=== PATIENT | female | born 1990 | race Caucasian/White ===

== ENCOUNTER 2016-12-05 07:57 | Inpatient (IN) | payer BC, OTHER ==
[~2016-12-05] VITALS: Ht 162.6 cm; Wt 80.3 kg
[2016-12-05] VITALS (61 sets, daily range): BP systolic 96–137; BP diastolic 54–85
[2016-12-05] MEDS ORDERED: D5 LR IV SOLUTION 1,000 ML IV ONE (08:12)
[2016-12-05] MEDS ORDERED: AMPICILLIN INJECTION 2,000 MG in NS (IVPB) 50 ML IV SCH (08:12)
[2016-12-05] MEDS: D5 LR IV SOLUTION 1,000 ML IV SCH ×2 (08:48→15:47)
[2016-12-05 09:09] LABS: BASOPHILS % (AUTO) 0 % (0-10); EOSINOPHILS # (AUTO) 0.1 10^3/uL (0.0-0.3); EOSINOPHILS % (AUTO) 1 % (0-10); LYMPHOCYTES % (AUTO) 17 % (12-44); MEAN CORPUSCULAR HEMOGLOBIN 32 PG (25-34); MEAN CORPUSCULAR HGB CONC 34 G/DL (32-36); MEAN CORPUSCULAR VOLUME 94 FL (80-99); MEAN PLATELET VOLUME 10.3 FL (7.4-10.4); MONOCYTES # (AUTO) 1.1 X 10^3 (0.0-1.0); MONOCYTES % (AUTO) 10 % (0-12); NEUTROPHILS # (AUTO) 8.3 X 10^3 (1.8-7.8); NEUTROPHILS % (AUTO) 72 % (42-75); PLATELET COUNT 199 10^3/uL (130-400); RED BLOOD COUNT 3.87 10^6/uL (4.35-5.85); RED CELL DISTRIBUTION WIDTH 12.7 % (10.0-14.5); WHITE BLOOD COUNT 11.5 10^3/uL (4.3-11.0)
[2016-12-05] MEDS ORDERED: OXYTOCIN/NORMAL SALINE 500 ML IV SCH ×2 (09:47→18:32)
[2016-12-05] MEDS ORDERED: OXYTOCIN/NORMAL SALINE 500 ML IV ONE (10:00)
[2016-12-05] MEDS: AMPICILLIN INJECTION 1,000 MG in NS (IVPB) 50 ML IV SCH ×2 (12:39→16:50)
[2016-12-05] MEDS ORDERED: SUFENTA 0.6MCG/ML BUPIVA 0.125 100 ML ONE (13:27)
[2016-12-05] MEDS ORDERED: BUPIVACAINE 0.25% 30 ML (SENSORCAINE) VIAL ONE (13:53)
[2016-12-05] MEDS ORDERED: LIDOCAINE PF 2% 10 ML (XYLOCAINE) AMP ONE (13:53)
[2016-12-05] MEDS ORDERED: fentaNYL INJECTION 100 MCG/2 ML AMP ONE (13:53)
[2016-12-05] MEDS ORDERED: CATHETER FLUSH 10 ML SYR IV SCH (14:00)
[2016-12-05] MEDS ORDERED: EPIDURAL (SUFENTA 0.6MCG/ML BUPIVA 0.125%) 100 ML BAG EPI PRN (14:30)
[2016-12-05] MEDS ORDERED: NALOXONE 0.4 MG/ML 1 ML (NARCAN) VIAL IV PRN (14:30)
[2016-12-05] MEDS ORDERED: diphenhydrAMINE 50 MG/ML INJ (BENADRYL) IV PRN (14:30)
[2016-12-05] MEDS ORDERED: ONDANSETRON 4 MG/2 ML (SDV) Z0FRAN IV PRN (14:30)
[2016-12-05] MEDS ORDERED: LACTATED RINGERS 1,000 ML IV SCH (14:30)
--- NOTE | 2016-12-05 16:09 | History & Physical ---
History and Physical this patient is a 25-year-old G1 white female with an EDC of 429 17 admitted on 2116 at 38 weeks and 6 days secondary to oligohydramnios. Her is further complicated by having had an abnormal tetra test with a weighted risk for neural tube defect. Evaluation has not confirmed that the fetus appears to be affected by neural tube defect. She presented with complaint of contractions. She denied ruptured membranes or bleeding. Had no other problems with his . GBS S culture after 35 weeks gestation was positive. Allergies are none Medications are vitamins past medical history, past surgical history, obstetric history, and history, and social histories are per the antepartum record H ENT exam is normal Neck is supple no lymphadenopathy no thyromegaly Abdomen is gravid soft nontender nondistended Extreme show clubbing cyanosis or there is no Homans sign. Pelvic exam currently showed the cervix between 45 cm dilated 89 percent effaced and presenting part is at the 0 to -1 station vertex with intact membranes. Amniotomy performed with release of small amount of clear fluid. Laboratory Tests 12/05/16 08:30 Hemoglobin and platelet count are normal Monitor shows a normal heart rate pattern with contractions every 2-4 minutes. Pitocin is currently at 20 mU/m Cervical exam on last clinic appointment was 2 cm dilated 80 percent effaced -1 station soft slightly anterior to mid plane. This equates to a Reveles score of 7 or 8 Assessment and plan 38-6/7 weeks' gestation with oligohydramnios and abnormal tetra test with GBS positive culture. Patient has been started on ampicillin this morning. She will continue on the ampicillin until she delivers. We anticipate a vaginal delivery. term with oligohydramnios abnormal tetra test and GBS positive culture Allergies and Home Medications Allergies Coded Allergies: No Known Drug Allergies (Unverified , 12/05/16) Clinical Quality Measures DVT/VTE Risk/Contraindication: Risk Factor Score Per Nursin RFS Level Per Nursing on Admit: 1=Low/No VTE PPX KHURRAM BRADFORD MD Dec 05, 2016 4:09 pm
[2016-12-05] MEDS ORDERED: LIDOCAINE/EPI 1%-1:200,000 (XYLOCAINE) 30 ML VIAL ONE (18:18)
[2016-12-05] MEDS ORDERED: oxyCODONE/APAP 10/325MG (PERCOCET 10) TABLET PO PRN (18:45)
[2016-12-05] MEDS ORDERED: BENZOCAINE/MENTHOL (DERMOPLAST) 56 ML CAN TP PRN (18:45)
[2016-12-05] MEDS ORDERED: TETANUS,DIPTH,PERTUSS P/F (BOOSTRIX) 0.5 ML VIAL IM ONE (18:45)
[2016-12-05] MEDS ORDERED: LIDOCAINE/EPI 1%-1:200,000 (XYLOCAINE) 30 ML VIAL INJ ONE (18:45)
[2016-12-05] MEDS ORDERED: MEASLES,MUMPS,RUBELLA 1 EA INJ SC ONE (18:45)
[2016-12-05] MEDS: KETOROLAC 30 MG/ML VIAL IV SCH (19:58)
[2016-12-05] MEDS ORDERED: BIOT10003 PO (20:06)
[2016-12-05] MEDS ORDERED: PREN1TAB19 PO (20:06)
[2016-12-05] MEDS ORDERED: WITCH HAZEL(TUCKS) 40 EA JAR ONE (22:41)
[2016-12-05] MEDS ORDERED: DIBUCAINE (NUPERCAINAL) 1% OINT 30 GM ONE (22:41)
[2016-12-05] MEDS ORDERED: DIBUCAINE (NUPERCAINAL) 1% OINT 30 GM TOP PRN (23:00)
[2016-12-05] MEDS ORDERED: WITCH HAZEL(TUCKS) 40 EA JAR TOP PRN (23:00)
[2016-12-06] VITALS: BP 110/64
--- NOTE | 2016-12-06 00:20 | OPERATIVE REPORT ---
DATE OF SERVICE: 12/05/2016 DELIVERY NOTE The patient delivered by term spontaneous vaginal delivery a viable male with Apgars of 9 and 9 at 1 and 5 minutes. Expected weight was 7 pounds 7 ounces. time was 1903. The infant was a boy. The infant was bulb suctioned on delivery of the head and again on completion of delivery. An episiotomy was performed as the head was and the bottom was beginning to split and lacerate in multiple places secondary to fairly significant labial and lower vaginal edema. The episiotomy was performed. The baby delivered with the next push. The infant was bulb suctioned on delivery of the head. The delivery was complete. The baby was bulb suctioned again, cleaned, warmed and stimulated, and the umbilical cord was eventually doubly-clamped and cut. Father cut the cord. The baby was passed to mom's abdomen. Cord bloods were obtained for an umbilical artery blood gas and for routine cord bloods. The placenta delivered with some manual assistance secondary to becoming trapped in the cervix in a Kevin delivery. The placenta was intact. It did have a marginal insertion of the umbilical cord with velamentous insertion as well. The placenta was sent to pathology for permanent section secondary to the patient's oligohydramnios and to the appearance of the placenta at the time of delivery. The cervix, vagina, rectum and perineum were examined and found intact, except for the midline episiotomy with a right hymenal ring avulsion from approximately 6 to 9 o'clock position and several small lacerations from the 3 to 6 o'clock position parallel to the route of the vagina. The episiotomy and the right hymenal ring avulsion were repaired with a single suture of 3-0 Vicryl in the usual manner of repairing of the episiotomy, but with additional steps to reapproximate the hymen. The closure was anatomically correct with good cosmetic effect and good hemostasis. The rectum was examined and found intact. Sponge and needle counts were correct on completion of the delivery and the repair. Estimated blood loss was around 300 mL. The patient tolerated the delivery and repair well and recovered in the LDR. The baby remained with the mom. Job ID: [id number] DocumentID: [id number] Dictated Date: 12/05/2016 19:30:15 Network Consultant Date: 12/06/2016 00:19:48 Dictated By: KHURRAM BRADFORD MD
[2016-12-06] MEDS: KETOROLAC 30 MG/ML VIAL IV SCH ×3 (01:21→06:50)
[2016-12-06] MEDS: DOCUSATE SODIUM 100 MG (COLACE) CAP PO SCH ×3 (01:51→23:58)
[2016-12-06 04:49] VITALS: BP 109/73
--- NOTE | 2016-12-06 06:25 | Progress Note-Standard ---
Standard Progress Note Progress Notes/Assess & Plan Progress/Assessment & Plan history patient without complaint. She is ambulating, voiding, tolerating by mouth well, has good pain control. Vital Signs Date Time Temp Pulse Resp B/P (MAP) Pulse Ox O2 Delivery O2 Flow Rate FiO2 12/06/16 04:49 97.4 66 18 109/73 98 Room Air 12/06/16 00:00 97.8 78 18 110/64 97 Room Air 12/05/16 21:35 97.7 89 17 114/70 97 Room Air 12/05/16 21:17 96 18 129/60 Room Air 12/05/16 21:01 82 18 113/65 Room Air 12/05/16 20:46 98.7 71 18 112/64 Room Air 12/05/16 20:31 87 18 108/62 Room Air 12/05/16 20:17 99.0 103 18 110/69 Room Air 12/05/16 20:02 94 18 96/68 Room Air 12/05/16 19:47 99.9 108 18 106/68 Room Air 12/05/16 19:32 92 18 101/66 Room Air 12/05/16 19:18 106 18 103/61 Room Air 12/05/16 18:55 Non Rebreather 10.00 12/05/16 18:32 86 18 137/77 Room Air 12/05/16 18:17 78 18 132/77 Room Air 12/05/16 18:12 67 18 113/69 96 Room Air 12/05/16 18:05 97.6 68 18 107/69 97 Room Air 12/05/16 17:58 68 18 111/74 98 Room Air 12/05/16 17:50 65 18 119/76 97 Room Air 12/05/16 17:45 62 18 114/71 98 Room Air 12/05/16 17:30 69 18 108/72 97 Room Air 12/05/16 17:15 79 18 109/72 98 Room Air 12/05/16 17:00 83 18 110/63 97 Room Air 12/05/16 16:45 69 18 109/64 97 Room Air 12/05/16 16:30 98.3 70 18 108/65 96 Room Air 12/05/16 16:15 74 18 107/57 97 Room Air 12/05/16 16:00 75 18 117/54 98 Room Air 12/05/16 15:45 69 18 117/65 97 Room Air 12/05/16 15:30 75 18 112/64 97 Room Air 12/05/16 15:15 71 18 115/69 98 Room Air 12/05/16 15:00 69 18 109/63 98 Room Air 12/05/16 14:56 66 18 106/71 98 Room Air 12/05/16 14:53 60 18 110/70 97 Room Air 12/05/16 14:50 98.0 72 18 109/68 97 Room Air 12/05/16 14:47 78 18 116/73 97 Room Air 12/05/16 14:44 66 18 111/65 97 Room Air 12/05/16 14:41 71 18 110/63 97 Room Air 12/05/16 14:38 64 18 113/66 97 Room Air 12/05/16 14:35 69 18 114/73 97 Room Air 12/05/16 14:32 73 18 111/61 96 Room Air 12/05/16 14:29 75 18 110/61 96 Room Air 12/05/16 14:26 95 120/78 97 Room Air 12/05/16 14:23 95 112/74 98 Room Air 12/05/16 14:20 88 122/79 98 Room Air 12/05/16 14:17 86 18 124/82 99 Room Air 12/05/16 14:14 88 18 124/73 99 Room Air 12/05/16 14:00 70 18 125/81 Room Air 12/05/16 13:48 73 18 124/80 Room Air 12/05/16 13:30 98.3 68 18 123/79 Room Air 12/05/16 13:15 76 18 124/85 Room Air 12/05/16 13:00 69 18 110/73 Room Air 12/05/16 12:49 67 18 111/76 Room Air 12/05/16 12:30 71 18 117/76 Room Air 12/05/16 12:15 98.8 75 18 112/70 Room Air 12/05/16 12:00 74 18 109/71 Room Air 12/05/16 11:45 72 18 115/79 Room Air 12/05/16 11:30 72 18 111/73 Room Air 12/05/16 11:00 75 18 110/68 Room Air 12/05/16 10:30 78 18 108/58 Room Air 12/05/16 10:00 98.3 71 18 110/65 Room Air 12/05/16 09:30 83 18 108/67 Room Air 12/05/16 09:00 87 18 99/56 Room Air 12/05/16 08:30 86 18 111/72 Room Air 12/05/16 07:59 98.1 79 18 119/74 96 Room Air I & O 12/06/16 07:00 Intake Total 4350 ml Output Total 700 ml Balance 3650 ml vital signs are stable. Patient afebrile. Fundus is firm below the umbilicus and nontender. Extremities show no clubbing cyanosis. There is no Homans sign. There is some pretibial pitting edema that is normal. Assessment and plan day number 1 doing well. Plan is for routine convalescence care today with discharge home tomorrow KHURRAM BRADFORD MD Dec 06, 2016 6:25 am
[2016-12-06 08:40] VITALS: BP 119/71
--- NOTE | 2016-12-06 09:46 | Anesthesia-Regional Post-Op ---
Regional Patient Condition Mental Status: Alert, Oriented x3 Circulation: Same as Pre-Op Headache: Absent Sensation: Full Recovery Motor Block: Absent Post Op Complications Complications None Follow Up Care/Instructions Patient Instructions None needed. Anesthesia/Patient Condition Patient is doing well, no complaints, stable vital signs, no apparent adverse anesthesia problems. No complications reported per nursing. TOYIN SANTORO CRNA Dec 06, 2016 09:46
[2016-12-06 11:44] VITALS: BP 112/65
[2016-12-06] MEDS: IBUPROFEN 800 MG (MOTRIN) TAB PO SCH ×2 (16:32→23:53)
[2016-12-06 16:45] VITALS: BP 114/66
[2016-12-06 23:00] VITALS: BP 114/64
[2016-12-07 05:34] VITALS: BP 110/70
[2016-12-07] MEDS: IBUPROFEN 800 MG (MOTRIN) TAB PO SCH ×2 (05:34→11:58)
--- NOTE | 2016-12-07 07:34 | Progress Note-Standard ---
Standard Progress Note Progress Notes/Assess & Plan Progress/Assessment & Plan history patient without complaint. She is ambulating, voiding, tolerating by mouth well, has good pain control. Vital Signs Date Time Temp Pulse Resp B/P (MAP) Pulse Ox O2 Delivery O2 Flow Rate FiO2 12/06/16 04:49 97.4 66 18 109/73 98 Room Air 12/06/16 00:00 97.8 78 18 110/64 97 Room Air 12/05/16 21:35 97.7 89 17 114/70 97 Room Air 12/05/16 21:17 96 18 129/60 Room Air 12/05/16 21:01 82 18 113/65 Room Air 12/05/16 20:46 98.7 71 18 112/64 Room Air 12/05/16 20:31 87 18 108/62 Room Air 12/05/16 20:17 99.0 103 18 110/69 Room Air 12/05/16 20:02 94 18 96/68 Room Air 12/05/16 19:47 99.9 108 18 106/68 Room Air 12/05/16 19:32 92 18 101/66 Room Air 12/05/16 19:18 106 18 103/61 Room Air 12/05/16 18:55 Non Rebreather 10.00 12/05/16 18:32 86 18 137/77 Room Air 12/05/16 18:17 78 18 132/77 Room Air 12/05/16 18:12 67 18 113/69 96 Room Air 12/05/16 18:05 97.6 68 18 107/69 97 Room Air 12/05/16 17:58 68 18 111/74 98 Room Air 12/05/16 17:50 65 18 119/76 97 Room Air 12/05/16 17:45 62 18 114/71 98 Room Air 12/05/16 17:30 69 18 108/72 97 Room Air 12/05/16 17:15 79 18 109/72 98 Room Air 12/05/16 17:00 83 18 110/63 97 Room Air 12/05/16 16:45 69 18 109/64 97 Room Air 12/05/16 16:30 98.3 70 18 108/65 96 Room Air 12/05/16 16:15 74 18 107/57 97 Room Air 12/05/16 16:00 75 18 117/54 98 Room Air 12/05/16 15:45 69 18 117/65 97 Room Air 12/05/16 15:30 75 18 112/64 97 Room Air 12/05/16 15:15 71 18 115/69 98 Room Air 12/05/16 15:00 69 18 109/63 98 Room Air 12/05/16 14:56 66 18 106/71 98 Room Air 12/05/16 14:53 60 18 110/70 97 Room Air 12/05/16 14:50 98.0 72 18 109/68 97 Room Air 12/05/16 14:47 78 18 116/73 97 Room Air 12/05/16 14:44 66 18 111/65 97 Room Air 12/05/16 14:41 71 18 110/63 97 Room Air 12/05/16 14:38 64 18 113/66 97 Room Air 12/05/16 14:35 69 18 114/73 97 Room Air 12/05/16 14:32 73 18 111/61 96 Room Air 12/05/16 14:29 75 18 110/61 96 Room Air 12/05/16 14:26 95 120/78 97 Room Air 12/05/16 14:23 95 112/74 98 Room Air 12/05/16 14:20 88 122/79 98 Room Air 12/05/16 14:17 86 18 124/82 99 Room Air 12/05/16 14:14 88 18 124/73 99 Room Air 12/05/16 14:00 70 18 125/81 Room Air 12/05/16 13:48 73 18 124/80 Room Air 12/05/16 13:30 98.3 68 18 123/79 Room Air 12/05/16 13:15 76 18 124/85 Room Air 12/05/16 13:00 69 18 110/73 Room Air 12/05/16 12:49 67 18 111/76 Room Air 12/05/16 12:30 71 18 117/76 Room Air 12/05/16 12:15 98.8 75 18 112/70 Room Air 12/05/16 12:00 74 18 109/71 Room Air 12/05/16 11:45 72 18 115/79 Room Air 12/05/16 11:30 72 18 111/73 Room Air 12/05/16 11:00 75 18 110/68 Room Air 12/05/16 10:30 78 18 108/58 Room Air 12/05/16 10:00 98.3 71 18 110/65 Room Air 12/05/16 09:30 83 18 108/67 Room Air 12/05/16 09:00 87 18 99/56 Room Air 12/05/16 08:30 86 18 111/72 Room Air 12/05/16 07:59 98.1 79 18 119/74 96 Room Air I & O 12/06/16 07:00 Intake Total 4350 ml Output Total 700 ml Balance 3650 ml vital signs are stable. Patient afebrile. Fundus is firm below the umbilicus and nontender. Extremities show no clubbing cyanosis. There is no Homans sign. There is some pretibial pitting edema that is normal. Assessment and plan day number 1 doing well. Plan is for routine convalescence care today with discharge home tomorrow December 07, 2016 Patient is without complaint. She is ambulating, voiding, tolerating fairly well, has good pain control, and is requesting discharge home. Vital Signs Date Time Temp Pulse Resp B/P (MAP) Pulse Ox O2 Delivery O2 Flow Rate FiO2 12/07/16 05:34 97.9 70 18 110/70 98 Room Air 12/06/16 23:00 98.1 78 18 114/64 98 Room Air 12/06/16 16:45 98.8 84 18 114/66 99 Room Air 12/06/16 11:44 88 18 112/65 97 Room Air 12/06/16 08:40 97.3 84 18 119/71 97 Room Air vital signs are stable. Patient is afebrile. Fundus is firm below the umbilicus and nontender. Extremities show no clubbing cyanosis. There is no Homans sign. Assessment and plan day number 2 status post term spontaneous vaginal delivery at 38-6/7 weeks' gestation. Patient is doing well and will be discharged home with follow-up in clinic Final Diagnosis term spontaneous vaginal delivery at 38-6/7 weeks' gestation KHURRAM BRADFORD MD Dec 07, 2016 7:34 am
[2016-12-07] MEDS ORDERED: DOCU100C37 PO (07:35)
[2016-12-07] MEDS ORDERED: OXYC-465 PO (07:35)
[2016-12-07] MEDS ORDERED: IBUP-1780 PO (07:35)
--- NOTE | 2016-12-07 07:37 | Discharge Instructions ---
Discharge Instructions Discharge Medications New, Converted or Re-Newed RX: RX on Chart Patient Instructions Patient Instructions: as directed [facility] to [facility]: as directed Activity & Diet Discharge Diet: No Restrictions Activity as Tolerated: No Orders-Post D/C & Referrals Follow Up Appt: Call to make follow up appt. for patient in 4 weeks. Activity Per routine post vaginal delivery instructions. Diet as tolerated Patient may shower or tub bathe as desired. KHURRAM BRADFORD MD Dec 07, 2016 7:37 am
[2016-12-07 09:00] VITALS: BP 130/75
[2016-12-07] MEDS: DOCUSATE SODIUM 100 MG (COLACE) CAP PO SCH (09:56)
== END 2016-12-07 13:05 | disposition home or self-care (01) | DRG 767 ==
LOC: LDRP 07:57
PROVIDERS: ADMIT Obstetrics & Gynecology; ATTEND Obstetrics & Gynecology
PROC: 10E0XZZ Delivery of Products of Conception, External Approach (ICD-10-PCS; principal; 2016-12-05)
PROC: 0W8NXZZ Division of Female Perineum, External Approach (ICD-10-PCS; 2016-12-05)
PROC: 10D17ZZ Extraction of Products of Conception, Retained, Via Natural or Artificial Opening (ICD-10-PCS; 2016-12-05)
PROC: 0HQ9XZZ Repair Perineum Skin, External Approach (ICD-10-PCS; 2016-12-05)
DX: O41.03X0 Oligohydramnios, third trimester, not applicable or unspecified (principal); O99.824 Streptococcus B carrier state complicating childbirth; O73.0 Retained placenta without hemorrhage; O70.0 First degree perineal laceration during delivery; Z37.0 Single live birth; Z3A.38 38 weeks gestation of pregnancy; Z23 Encounter for immunization
CPT/HCPCS: 36415; 85025; 86850; 86900; 86901; 88307; 90715

== ENCOUNTER 2018-07-23 05:42 | Outpatient (CLI) | payer BC ==
[~2018-07-23] VITALS: Ht 162.6 cm; Wt 63.5 kg
[~2018-07-23 05:42] MED LIST: BIOT10005 PO; DOCU100C37 PO; IBUP-1780 PO; OXYC-465 PO; PREN1TAB19 PO
== END 2018-07-23 10:15 | disposition home or self-care (01) ==
LOC: PREOP 05:42
PROVIDERS: ATTEND Obstetrics & Gynecology
DX: Z01.818 Encounter for other preprocedural examination (principal)

== ENCOUNTER 2018-07-26 11:49 | Day surgery (SDC) | payer BC ==
[~2018-07-26] VITALS: Ht 162.6 cm; Wt 63.5 kg
--- OUTSIDE RECORDS SUMMARY | 2018-07-26 11:53 | XMS REPORT | CCD ---
Author Author Jaida Godfrey MD, [facility] Address [facility] [place] [address] Phone Care Team Providers Care Medical Assistant Prn Name Role Phone PP Unavailable CCM Unavailable Summary Purpose Interface Exchange Insurance Providers Payer name Policy type / Coverage type Covered constitution party ID Effective Begin Date Effective End Date [id number] Unknown Unknown Family history Sister Diagnosis Age At Onset Ovarian cancer Unknown Grandfather Diagnosis Age At Onset Diabetes Unknown Father Diagnosis Age At Onset No Known Diseases N/A Mother Diagnosis Age At Onset Hypertension Unknown Social History Social History Element Codes Description Effective Dates Number of children Unknown 1 07/14/2017 Marital status Unknown 03/31/[address]: 879931760 Never smoker 09/28/[address]: 437738 Currently drinks alcohol 09/28/2014 Allergies, Adverse Reactions, Alerts Substance Reaction Codes Entered Date Inactivated Date Status * NO KNOWN FOOD ALLERGIES Unknown 09/28/2014 No Inactive Date Active Seasonal Unknown 09/28/2014 No Inactive Date Active * NO KNOWN DRUG ALLERGIES Unknown 09/28/2014 No Inactive Date Active Past Medical History Illness Codes Condition Status Onset Date Resolved Date Encounter for general adult medical examination without abnormal findings ICD-9: V70.0 ICD-10: Z00.00 Active 07/23/2016 Unknown 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 03/30/2016 Unknown Tinea unguium ICD-9: 110.1 ICD-10: B35.1 Active 03/30/2016 Unknown Unspecified abnormal finding in specimens from other organs , systems and tissues ICD-9: 792.9 ICD-10: R89.9 Active 10/28/2015 Unknown Well adult ICD-9: V70.0 Active 09/28/2014 Unknown Problems Condition Codes Effective Dates Condition Status Encounter for general adult medical examination without abnormal findings ICD-9: V70.0 ICD-10: Z00.00 07/23/2016 Active 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 03/30/2016 Active Tinea unguium ICD-9: 110.1 ICD-10: B35.1 03/30/2016 Active Unspecified abnormal finding in specimens from other organs , systems and tissues ICD-9: 792.9 ICD-10: R89.9 10/28/2015 Active Well adult ICD-9: V70.0 09/28/2014 Active Medications Medication Codes Instructions Start Date Stop Date Status Fill Instructions DHA oral RxNorm: 174286 oral No Start Date Active fenugreek seed extract oral RxNorm: 240694 oral No Start Date Active Microgestin 120 (21) 1 mg-20 mcg tablet RxNorm: 0395651 oral No Start Date 03/30/2016 Inactive biotin oral RxNorm: 1588 oral No Start Date 07/13/2017 Inactive Medication Administered No Medication Administered data Immunizations No Immunization data Assessments Condition Codes Effective Dates Encounter for general adult medical examination without abnormal findings ICD-10: Z00.00 ICD-9: V70.0 06/11/2018 Tinea unguium ICD-10: B35.1 ICD-9: 110.1 03/31/2016 Nail dystrophy ICD-10: L60.3 ICD-9: 703.8 03/31/2016 Unspecified abnormal finding in specimens from other organs, systems and tissues ICD-10: R89.9 ICD-9: 792.9 10/29/2015 Well adult ICD-9: V70.0 09/28/2014 Reason For Visit Reason For Visit Effective Dates Notes well woman exam (18-39 years) 06/11/2018 well woman exam (18-39 years) 07/14/2017 well woman exam (18-39 years) 07/24/2016 onychodystrophy 03/31/2016 well woman exam (18-39 years) 07/05/2015 _ 09/28/2014 here for exam Results Observation Observation Code Item Item Code Result Date Cbc With Differential Ord2 WBC 7.35 K/ul 10/31/2015 Cbc With Differential Ord2 RBC 4.38 M/ul 10/31/2015 Cbc With Differential Ord2 HGB 13.6 g/dl 10/31/2015 Cbc With Differential Ord2 HCT 39.2 % 10/31/2015 Cbc With Differential Ord2 Neut% 59.0 % 10/31/2015 Cbc With Differential Ord2 Lymph% 33.9 % 10/31/2015 Cbc With Differential Ord2 MCV 89.5 fl 10/31/2015 Cbc With Differential Ord2 [place]% 6.3 % 10/31/2015 Cbc With Differential Ord2 MCH 31.1 pg 10/31/2015 Cbc With Differential Ord2 Eos% 0.7 % 10/31/2015 Cbc With Differential Ord2 MCHC 34.7 pg 10/31/2015 Cbc With Differential Ord2 Baso% 0.1 % 10/31/2015 Cbc With Differential Ord2 PLT 243 K/ul 10/31/2015 Cbc With Differential Ord2 RDW 12.1 % 10/31/2015 Cbc With Differential Ord2 Neut ABS# 4.34 K/ul 10/31/2015 Cbc With Differential Ord2 Lymph ABS# 2.49 K/ul 10/31/2015 Cbc With Differential Ord2 [place] ABS# 0.5 K/ul 10/31/2015 Cbc With Differential Ord2 Eos ABS# 0.1 K/ul 10/31/2015 Cbc With Differential Ord2 Baso ABS# 0.0 K/ul 10/31/2015 Cbc With Differential Ord2 New Analyzer Notice Please note new ref ranges starting 08-29-2015 due to implemntation of new five part differential hematolgy analyzer. 10/31/2015 Comp Metabolic Sqj561 NA 137 mEq/L 08/29/2015 Comp Metabolic Los104 K 3.9 mEq/L 08/29/2015 Comp Metabolic Cyh701 CL 105 mEq/L 08/29/2015 Comp Metabolic Qfs621 CO2 26.0 mEq/L 08/29/2015 Comp Metabolic Zwr057 ANION GAP 10 08/29/2015 Comp Metabolic Pox895 GLUCOSE 81 mg/dL 08/29/2015 Comp Metabolic Gps303 Creat 0.8 mg/dL 08/29/2015 Comp Metabolic Nlj152 eGFR 91 ml/min/1.73m2 08/29/2015 Comp Metabolic Bcw349 BUN 15 mg/dL 08/29/2015 Comp Metabolic Zwe919 B/C Ratio 18.5 Ratio 08/29/2015 Comp Metabolic Vtn281 CALCIUM 9.2 mg/dL 08/29/2015 Comp Metabolic Esa243 ALK PHOS 39 U/L 08/29/2015 Comp Metabolic Urr108 AST(SGOT) 15 U/L 08/29/2015 Comp Metabolic Akv749 ALT(SGPT) 13 U/L 08/29/2015 Comp Metabolic Uxa107 BILI T 0.8 mg/dL 08/29/2015 Comp Metabolic Nhf148 ALBUMIN 4.4 g/dL 08/29/2015 Comp Metabolic Wyy755 TPRO 6.9 g/dL 08/29/2015 Comp Metabolic Kwm584 GLOB 2.5 g/dL 08/29/2015 Comp Metabolic Czw036 A/G Ratio 1.7 Ratio 08/29/2015 Comp Metabolic Orh546 Osmo 274 mOsmo 08/29/2015 Manual Differential Ord52 D-Neutr 34 % 08/29/2015 Manual Differential Ord52 D-Bands 2 % 08/29/2015 Manual Differential Ord52 D-Lymph 61 % 08/29/2015 Manual Differential Ord52 D-[place] 3 % 08/29/2015 Manual Differential Ord52 D-1 RBC NORMAL 08/29/2015 Manual Differential Ord52 D-3 FEW ATYPICAL LYMPHOCYTES OBSERVED 08/29/2015 Manual Differential Ord52 D-2 FEW GIANT PLATELETS OBSERVED Lipid Ord30 CHOL 186 mg/dL 08/29/2015 Lipid Ord30 HDL 52.0 mg/dl 08/29/2015 Lipid Ord30 TRIG 85 mg/dL 08/29/2015 Lipid Ord30 LDL 117 mg/dL 08/29/2015 Lipid Ord30 C/HDL 3.6 Ratio 08/29/2015 Cbc With Differential Ord2 WBC 4.6 K/uL 08/29/2015 Cbc With Differential Ord2 LYM 2.3 K/uL 08/29/2015 Cbc With Differential Ord2 LYM% 49.9 % 08/29/2015 Cbc With Differential Ord2 NEUT/GRAN 1.9 K/uL 08/29/2015 Cbc With Differential Ord2 NEUT/GRAN % 40.6 % 08/29/2015 Cbc With Differential Ord2 MID 0.4 K/uL 08/29/2015 Cbc With Differential Ord2 MID% 9.5 % 08/29/2015 Cbc With Differential Ord2 RBC 4.40 M/uL 08/29/2015 Cbc With Differential Ord2 HGB 13.2 g/dL 08/29/2015 Cbc With Differential Ord2 HCT 41.0 % 08/29/2015 Cbc With Differential Ord2 MCV 93 fL 08/29/2015 Cbc With Differential Ord2 MCH 30 pg 08/29/2015 Cbc With Differential Ord2 MCHC 32 g/dL 08/29/2015 Cbc With Differential Ord2 PLT 226 K/uL 08/29/2015 Cbc With Differential Ord2 RDW 12.7 % 08/29/2015 Tsh Ord6 hTSH II 2.00 uIU/mL 08/29/2015 Review of Systems System Result Effective Dates Constitutional No recent illness 2017 Constitutional No anorexia 06/11/2018 Constitutional No night sweats 2017 Constitutional No chills 06/11/2018 Constitutional No diaphoresis 06/11/2018 Constitutional No fever 06/11/2018 Constitutional No insomnia 06/11/2018 Constitutional No malaise 06/11/2018 Constitutional No weight loss 06/11/2018 Constitutional No weight gain 06/11/2018 Eyes No eye discharge 06/11/2018 Eyes No eye erythema 06/11/2018 Eyes No vision change 06/11/2018 Ears/Nose/Throat/Neck No headache 2017 Ears/Nose/Throat/Neck No nasal allergies 06/11/2018 Ears/Nose/Throat/Neck No nasal discharge 06/11/2018 Cardiovascular No chest pain/pressure Cardiovascular No dyspnea 06/11/2018 Cardiovascular No edema 06/11/2018 Cardiovascular No fatigue 06/11/2018 Respiratory No chest congestion 2017 Respiratory No cigarette smoking 2017 Respiratory No cough 06/11/2018 Gastrointestinal No abdominal pain 2017 Gastrointestinal No constipation 2017 Gastrointestinal No diarrhea 06/11/2018 Gastrointestinal No nausea 06/11/2018 Gastrointestinal No vomiting 06/11/2018 Genitourinary/Nephrology No dysuria 06/11 Musculoskeletal No stiffness 06/11/2018 Musculoskeletal No joint complaint 2017 Dermatologic No rash 06/11/2018 Dermatologic No sores 06/11/2018 Neurologic No alteration of consciousness 06/11/2018 Neurologic No dizziness 06/11/2018 Psychiatric No anxiety 06/11/2018 Psychiatric No depression 06/11/2018 Endocrine No dry or coarse skin 2017 Hematologic/Lymphatic No abnormal bleeding and bruising 06/11/2018 Constitutional No recent illness 2016 Constitutional No anorexia 07/14/2017 Constitutional No night sweats 2016 Constitutional No chills 07/14/2017 Constitutional No diaphoresis 07/14/2017 Constitutional No fever 07/14/2017 Constitutional No insomnia 07/14/2017 Constitutional No malaise 07/14/2017 Constitutional No weight loss 07/14/2017 Constitutional No weight gain 07/14/2017 Eyes No eye discharge 07/14/2017 Eyes No eye erythema 07/14/2017 Eyes No vision change 07/14/2017 Ears/Nose/Throat/Neck No headache 2016 Ears/Nose/Throat/Neck No nasal allergies 07/14/2017 Ears/Nose/Throat/Neck No nasal discharge 07/14/2017 Cardiovascular No chest pain/pressure Cardiovascular No dyspnea 07/14/2017 Cardiovascular No edema 07/14/2017 Cardiovascular No fatigue 07/14/2017 Respiratory No chest congestion 2016 Respiratory No cigarette smoking 2016 Respiratory No cough 07/14/2017 Gastrointestinal No abdominal pain 2016 Gastrointestinal No constipation 2016 Gastrointestinal No diarrhea 07/14/2017 Gastrointestinal No nausea 07/14/2017 Gastrointestinal No vomiting 07/14/2017 Genitourinary/Nephrology No dysuria 07/14 Musculoskeletal No stiffness 07/14/2017 Musculoskeletal No joint complaint 2016 Dermatologic No rash 07/14/2017 Dermatologic No sores 07/14/2017 Neurologic No alteration of consciousness 07/14/2017 Neurologic No dizziness 07/14/2017 Psychiatric No anxiety 07/14/2017 Psychiatric No depression 07/14/2017 Endocrine No dry or coarse skin 2016 Hematologic/Lymphatic No abnormal bleeding and bruising 07/14/2017 Constitutional No recent illness 2015 Constitutional No anorexia 07/24/2016 Constitutional No night sweats 2015 Constitutional No chills 07/24/2016 Constitutional No diaphoresis 07/24/2016 Constitutional No fever 07/24/2016 Constitutional No insomnia 07/24/2016 Constitutional No malaise 07/24/2016 Constitutional No weight loss 07/24/2016 Constitutional No weight gain 07/24/2016 Eyes No eye discharge 07/24/2016 Eyes No eye erythema 07/24/2016 Eyes No vision change 07/24/2016 Ears/Nose/Throat/Neck No headache 2015 Ears/Nose/Throat/Neck No nasal allergies 07/24/2016 Ears/Nose/Throat/Neck No nasal discharge 07/24/2016 Cardiovascular No chest pain/pressure 03/2016 Cardiovascular No dyspnea 07/24/2016 Cardiovascular No edema 07/24/2016 Cardiovascular No fatigue 07/24/2016 Respiratory No chest congestion 2015 Respiratory No cigarette smoking 2015 Respiratory No cough 07/24/2016 Gastrointestinal No abdominal pain 2015 Gastrointestinal No constipation 2015 Gastrointestinal No diarrhea 07/24/2016 Gastrointestinal No nausea 07/24/2016 Gastrointestinal No vomiting 07/24/2016 Genitourinary/Nephrology No dysuria 07/24 Musculoskeletal No stiffness 07/24/2016 Musculoskeletal No joint complaint 2015 Dermatologic No rash 07/24/2016 Dermatologic No sores 07/24/2016 Neurologic No alteration of consciousness 07/24/2016 Neurologic No dizziness 07/24/2016 Psychiatric No anxiety 07/24/2016 Psychiatric No depression 07/24/2016 Endocrine No dry or coarse skin 2015 Hematologic/Lymphatic No abnormal bleeding and bruising 07/24/2016 Constitutional No recent illness 2015 Constitutional No anorexia 03/31/2016 Constitutional No night sweats 2015 Constitutional No chills 03/31/2016 Constitutional No diaphoresis 03/31/2016 Constitutional No fatigue 03/31/2016 Constitutional No fever 03/31/2016 Constitutional No insomnia 03/31/2016 Constitutional No malaise 03/31/2016 Constitutional No weight loss 03/31/2016 Constitutional No weight gain 03/31/2016 Constitutional No recent illness 2014 Constitutional No insomnia 07/05/2015 Constitutional No weight loss 07/05/2015 Constitutional No weight gain 07/05/2015 Eyes No vision change 07/05/2015 Ears/Nose/Throat/Neck No nasal allergies 07/05/2015 Ears/Nose/Throat/Neck No nasal discharge 07/05/2015 Cardiovascular No chest pain/pressure Cardiovascular No edema 07/05/2015 Cardiovascular No dyspnea 07/05/2015 Respiratory No cough 07/05/2015 Respiratory No chest congestion 2014 Respiratory No cigarette smoking 2014 Gastrointestinal No abdominal pain 2014 Gastrointestinal No constipation 2014 Gastrointestinal No diarrhea 07/05/2015 Genitourinary/Nephrology No dysuria 07/05 Musculoskeletal No stiffness 07/05/2015 Musculoskeletal No joint complaint 2014 Dermatologic No rash 07/05/2015 Neurologic No alteration of consciousness 07/05/2015 Neurologic No dizziness 07/05/2015 Gastrointestinal No nausea 07/05/2015 Gastrointestinal No vomiting 07/05/2015 Cardiovascular No fatigue 07/05/2015 Psychiatric No depression 07/05/2015 Psychiatric No anxiety 07/05/2015 Constitutional No anorexia 07/05/2015 Constitutional No night sweats 2014 Constitutional No chills 07/05/2015 Constitutional No diaphoresis 07/05/2015 Constitutional No fever 07/05/2015 Constitutional No malaise 07/05/2015 Eyes No eye discharge 07/05/2015 Eyes No eye erythema 07/05/2015 Ears/Nose/Throat/Neck No headache 2014 Dermatologic No sores 07/05/2015 Endocrine No dry or coarse skin 2014 Hematologic/Lymphatic No abnormal bleeding and bruising 07/05/2015 Constitutional No recent illness 2014 Constitutional No anorexia 09/28/2014 Constitutional No night sweats 2014 Constitutional No chills 09/28/2014 Constitutional No diaphoresis 09/28/2014 Constitutional No fatigue 09/28/2014 Constitutional No fever 09/28/2014 Constitutional No insomnia 09/28/2014 Constitutional No malaise 09/28/2014 Constitutional No weight loss 09/28/2014 Constitutional No weight gain 09/28/2014 Eyes No eye discharge 09/28/2014 Eyes No eye erythema 09/28/2014 Ears/Nose/Throat/Neck No dizziness 2014 Ears/Nose/Throat/Neck No headache 2014 Cardiovascular No chest pain/pressure 07/2015 Cardiovascular No dyspnea 09/28/2014 Cardiovascular No edema 09/28/2014 Respiratory No cough 09/28/2014 Respiratory No chest congestion 2014 Gastrointestinal No constipation 2014 Gastrointestinal No diarrhea 09/28/2014 Gastrointestinal No vomiting 09/28/2014 Gastrointestinal No nausea 09/28/2014 Genitourinary/Nephrology No dysuria 09/28 Musculoskeletal No joint complaint 2014 Dermatologic No rash 09/28/2014 Dermatologic No sores 09/28/2014 Neurologic No alteration of consciousness 09/28/2014 Psychiatric No anxiety 09/28/2014 Psychiatric No depression 09/28/2014 Endocrine No dry or coarse skin 2014 Hematologic/Lymphatic No abnormal bleeding and bruising 09/28/2014 Allergy/Immunology No food allergy 2014 Physical Exam Exam Name System Name Item Name Status Result Effective Dates Notes Full Exam - General 1994 Constitutional general appearance Overall: well developed 06/11/2018 None Full Exam - General 1994 Constitutional general appearance Overall: in no acute distress 06/11/2018 None Full Exam - General 1994 Constitutional general appearance Overall: well nourished 06/11/2018 None Full Exam - General 1994 Eyes conjunctiva /eyelids Overall: conjunctiva clear 06/11/2018 None Full Exam - General 1994 Ears/Nose/Throat otoscopic exam Overall: external auditory canals clear 06/11/2018 None Full Exam - General 1994 Ears/Nose/Throat otoscopic exam Overall: tympanic membranes clear 06/11/2018 None Full Exam - General 1994 Ears/Nose/Throat oral cavity/pharynx/larynx Overall: oral mucosa clear 06/11/2018 None Full Exam - General 1994 Neck inspection of neck Overall: normal size 06/11/2018 None Full Exam - General 1994 Respiratory auscultation Overall: breath sounds clear bilaterally 06/11/2018 None Full Exam - General 1994 Respiratory respiratory effort/rhythm Overall: no retractions 06/11/2018 None Full Exam - General 1994 Respiratory respiratory effort/rhythm Overall: normal rate 06/11/2018 None Full Exam - General 1994 Cardiovascular extremities Overall: no clubbing 06/11/2018 None Full Exam - General 1994 Cardiovascular auscultation of heart Overall: regular rate 06/11/2018 None Full Exam - General 1994 Cardiovascular auscultation of heart Overall: normal heart sounds 06/11/2018 None Full Exam - General 1994 Abdomen abdominal exam Overall: no tenderness 06/11/2018 None Full Exam - General 1994 Abdomen abdominal exam Overall: normal bowel sounds 06/11/2018 None Full Exam - General 1994 Lymphatic neck nodes Overall: anterior cervical chain benign 06/11/2018 None Full Exam - General 1994 Lymphatic neck nodes Overall: posterior cervical chain benign 06/11/2018 None Full Exam - General 1994 Musculoskeletal gait and station Overall: normal gait 06/11/2018 None Full Exam - General 1994 Musculoskeletal gait and station Overall: normal station 06/11/2018 None Full Exam - General 1994 Integument inspection of skin Overall: few scattered moles, no gross abnormalities 06/11/2018 None Full Exam - General 1994 Neurologic cranial nerves Overall: crainial nerves 2 - 12 grossly intact 06/11/2018 None Full Exam - General 1994 Psychiatric orientation/consciousness Overall: oriented to person, place and time 06/11/2018 None Full Exam - General 1994 Constitutional general appearance Overall: well developed 07/14/2017 None Full Exam - General 1994 Constitutional general appearance Overall: in no acute distress 07/14/2017 None Full Exam - General 1994 Constitutional general appearance Overall: well nourished 07/14/2017 None Full Exam - General 1994 Eyes conjunctiva /eyelids Overall: conjunctiva clear 07/14/2017 None Full Exam - General 1994 Ears/Nose/Throat otoscopic exam Overall: external auditory canals clear 07/14/2017 None Full Exam - General 1994 Ears/Nose/Throat otoscopic exam Overall: tympanic membranes clear 07/14/2017 None Full Exam - General 1994 Ears/Nose/Throat oral cavity/pharynx/larynx Overall: oral mucosa clear 07/14/2017 None Full Exam - General 1994 Neck inspection of neck Overall: normal size 07/14/2017 None Full Exam - General 1994 Respiratory auscultation Overall: breath sounds clear bilaterally 07/14/2017 None Full Exam - General 1994 Respiratory respiratory effort/rhythm Overall: no retractions 07/14/2017 None Full Exam - General 1994 Respiratory respiratory effort/rhythm Overall: normal rate 07/14/2017 None Full Exam - General 1994 Cardiovascular extremities Overall: no clubbing 07/14/2017 None Full Exam - General 1994 Cardiovascular auscultation of heart Overall: regular rate 07/14/2017 None Full Exam - General 1994 Cardiovascular auscultation of heart Overall: normal heart sounds 07/14/2017 None Full Exam - General 1994 Abdomen abdominal exam Overall: no tenderness 07/14/2017 None Full Exam - General 1994 Abdomen abdominal exam Overall: normal bowel sounds 07/14/2017 None Full Exam - General 1994 Lymphatic neck nodes Overall: anterior cervical chain benign 07/14/2017 None Full Exam - General 1994 Lymphatic neck nodes Overall: posterior cervical chain benign 07/14/2017 None Full Exam - General 1994 Musculoskeletal gait and station Overall: normal gait 07/14/2017 None Full Exam - General 1994 Musculoskeletal gait and station Overall: normal station 07/14/2017 None Full Exam - General 1994 Integument inspection of skin Overall: few scattered moles, no gross abnormalities 07/14/2017 None Full Exam - General 1994 Neurologic cranial nerves Overall: crainial nerves 2 - 12 grossly intact 07/14/2017 None Full Exam - General 1994 Psychiatric orientation/consciousness Overall: oriented to person, place and time 07/14/2017 None Full Exam - General 1994 Constitutional general appearance Overall: well developed 07/24/2016 None Full Exam - General 1994 Constitutional general appearance Overall: in no acute distress 07/24/2016 None Full Exam - General 1994 Constitutional general appearance Overall: well nourished 07/24/2016 None Full Exam - General 1994 Eyes conjunctiva /eyelids Overall: conjunctiva clear 07/24/2016 None Full Exam - General 1994 Ears/Nose/Throat otoscopic exam Overall: external auditory canals clear 07/24/2016 None Full Exam - General 1994 Ears/Nose/Throat otoscopic exam Overall: tympanic membranes clear 07/24/2016 None Full Exam - General 1994 Ears/Nose/Throat oral cavity/pharynx/larynx Overall: oral mucosa clear 07/24/2016 None Full Exam - General 1994 Neck inspection of neck Overall: normal size 07/24/2016 None Full Exam - General 1994 Respiratory auscultation Overall: breath sounds clear bilaterally 07/24/2016 None Full Exam - General 1994 Respiratory respiratory effort/rhythm Overall: no retractions 07/24/2016 None Full Exam - General 1994 Respiratory respiratory effort/rhythm Overall: normal rate 07/24/2016 None Full Exam - General 1994 Cardiovascular extremities Overall: no clubbing 07/24/2016 None Full Exam - General 1994 Cardiovascular auscultation of heart Overall: regular rate 07/24/2016 None Full Exam - General 1994 Cardiovascular auscultation of heart Overall: normal heart sounds 07/24/2016 None Full Exam - General 1994 Abdomen abdominal exam Overall: no tenderness 07/24/2016 None Full Exam - General 1994 Abdomen abdominal exam Overall: normal bowel sounds 07/24/2016 None Full Exam - General 1994 Lymphatic neck nodes Overall: anterior cervical chain benign 07/24/2016 None Full Exam - General 1994 Lymphatic neck nodes Overall: posterior cervical chain benign 07/24/2016 None Full Exam - General 1994 Musculoskeletal gait and station Overall: normal gait 07/24/2016 None Full Exam - General 1994 Musculoskeletal gait and station Overall: normal station 07/24/2016 None Full Exam - General 1994 Integument inspection of skin Overall: few scattered moles, no gross abnormalities 07/24/2016 None Full Exam - General 1994 Neurologic cranial nerves Overall: crainial nerves 2 - 12 grossly intact 07/24/2016 None Full Exam - General 1994 Psychiatric orientation/consciousness Overall: oriented to person, place and time 07/24/2016 None Full Exam - Dermatology Constitutional general appearance Overall: well nourished 03/31/2016 None Full Exam - Dermatology Constitutional general appearance Overall: well developed 03/31/2016 None Full Exam - Dermatology Constitutional general appearance Overall: in no acute distress 03/31/2016 None Full Exam - Dermatology Constitutional general appearance Overall: of normal body habitus 03/31/2016 None Full Exam - Dermatology Constitutional general appearance Overall: well groomed 03/31/2016 None Full Exam - Dermatology Psychiatric orientation Overall: oriented to person, place and time 03/31/2016 None Full Exam - Dermatology Musculoskeletal digits and nails Nails: onycholysis 03/31/2016 None Full Exam - General 1994 Constitutional general appearance Overall: well developed 07/05/2015 None Full Exam - General 1994 Constitutional general appearance Overall: in no acute distress 07/05/2015 None Full Exam - General 1994 Constitutional general appearance Overall: well nourished 07/05/2015 None Full Exam - General 1994 Eyes conjunctiva /eyelids Overall: conjunctiva clear 07/05/2015 None Full Exam - General 1994 Ears/Nose/Throat otoscopic exam Overall: external auditory canals clear 07/05/2015 None Full Exam - General 1994 Ears/Nose/Throat otoscopic exam Overall: tympanic membranes clear 07/05/2015 None Full Exam - General 1994 Ears/Nose/Throat oral cavity/pharynx/larynx Overall: oral mucosa clear 07/05/2015 None Full Exam - General 1994 Neck inspection of neck Overall: normal size 07/05/2015 None Full Exam - General 1994 Respiratory auscultation Overall: breath sounds clear bilaterally 07/05/2015 None Full Exam - General 1994 Respiratory respiratory effort/rhythm Overall: no retractions 07/05/2015 None Full Exam - General 1994 Respiratory respiratory effort/rhythm Overall: normal rate 07/05/2015 None Full Exam - General 1994 Cardiovascular extremities Overall: no clubbing 07/05/2015 None Full Exam - General 1994 Cardiovascular auscultation of heart Overall: regular rate 07/05/2015 None Full Exam - General 1994 Cardiovascular auscultation of heart Overall: normal heart sounds 07/05/2015 None Full Exam - General 1994 Abdomen abdominal exam Overall: no tenderness 07/05/2015 None Full Exam - General 1994 Abdomen abdominal exam Overall: normal bowel sounds 07/05/2015 None Full Exam - General 1994 Lymphatic neck nodes Overall: anterior cervical chain benign 07/05/2015 None Full Exam - General 1994 Lymphatic neck nodes Overall: posterior cervical chain benign 07/05/2015 None Full Exam - General 1994 Musculoskeletal gait and station Overall: normal gait 07/05/2015 None Full Exam - General 1994 Musculoskeletal gait and station Overall: normal station 07/05/2015 None Full Exam - General 1994 Integument inspection of skin Overall: few scattered moles, no gross abnormalities 07/05/2015 None Full Exam - General 1994 Neurologic cranial nerves Overall: crainial nerves 2 - 12 grossly intact 07/05/2015 None Full Exam - General 1994 Psychiatric orientation/consciousness Overall: oriented to person, place and time 07/05/2015 None Full Exam - General 1994 Constitutional general appearance Overall: well developed 09/28/2014 None Full Exam - General 1994 Constitutional general appearance Overall: in no acute distress 09/28/2014 None Full Exam - General 1994 Constitutional general appearance Overall: well nourished 09/28/2014 None Full Exam - General 1994 Psychiatric orientation/consciousness Overall: oriented to person, place and time 09/28/2014 None Full Exam - General 1994 Neurologic cranial nerves Overall: crainial nerves 2 - 12 grossly intact 09/28/2014 None Full Exam - General 1994 Integument inspection of skin Overall: few scattered moles, no gross abnormalities 09/28/2014 None Full Exam - General 1994 Musculoskeletal gait and station Overall: normal gait 09/28/2014 None Full Exam - General 1994 Musculoskeletal gait and station Overall: normal station 09/28/2014 None Full Exam - General 1994 Lymphatic neck nodes Overall: posterior cervical chain benign 09/28/2014 None Full Exam - General 1994 Lymphatic neck nodes Overall: anterior cervical chain benign 09/28/2014 None Full Exam - General 1994 Abdomen abdominal exam Overall: no tenderness 09/28/2014 None Full Exam - General 1994 Abdomen abdominal exam Overall: normal bowel sounds 09/28/2014 None Full Exam - General 1994 Cardiovascular extremities Overall: no clubbing 09/28/2014 None Full Exam - General 1994 Cardiovascular auscultation of heart Overall: regular rate 09/28/2014 None Full Exam - General 1994 Cardiovascular auscultation of heart Overall: normal heart sounds 09/28/2014 None Full Exam - General 1994 Respiratory auscultation Overall: breath sounds clear bilaterally 09/28/2014 None Full Exam - General 1994 Respiratory respiratory effort/rhythm Overall: no retractions 09/28/2014 None Full Exam - General 1994 Respiratory respiratory effort/rhythm Overall: normal rate 09/28/2014 None Full Exam - General 1994 Neck inspection of neck Overall: normal size 09/28/2014 None Full Exam - General 1994 Ears/Nose/Throat otoscopic exam Overall: external auditory canals clear 09/28/2014 None Full Exam - General 1994 Ears/Nose/Throat otoscopic exam Overall: tympanic membranes clear 09/28/2014 None Full Exam - General 1994 Ears/Nose/Throat oral cavity/pharynx/larynx Overall: oral mucosa clear 09/28/2014 None Full Exam - General 1994 Eyes conjunctiva /eyelids Overall: conjunctiva clear 09/28/2014 None Procedures No Procedures data Vital Signs Date Vital 06/11/2018 Blood Pressure 1: 106/68 Code : 8480-6 BMI: 24.7 Code : 09739-6 Heart Rate 1 : 85 bpm Height: 5'4" SpO2: 98% Weight: 144 lbs 07/14/2017 Blood Pressure 1: 102/72 Code : 8480-6 BMI: 25.4 Code : 42897-9 Heart Rate 1 : 96 bpm Height: 5'4" SpO2: 98% Weight: 148 lbs 07/24/2016 Blood Pressure 1: 112/56 Code : 8480-6 BMI: 26.8 Code : 76328-6 Heart Rate 1 : 92 bpm Height: 5'4" SpO2: 96% Weight: 156 lbs 03/31/2016 Blood Pressure 1: 110/60 Code : 8480-6 BMI: 25.1 Code : 80660-2 Heart Rate 1 : 110 bpm Height: 5'4" SpO2: 97% Weight: 146 lbs 07/05/2015 Blood Pressure 1: 118/62 Code : 8480-6 BMI: 25.4 Code : 35149-7 Heart Rate 1 : 81 bpm Height: 5'4" SpO2: 98% Weight: 148 lbs 09/28/2014 Blood Pressure 1: 100/62 Code : 8480-6 BMI: 25.7 Code : 03523-2 Heart Rate 1 : 77 bpm Height: 5'4" SpO2: 98% Weight: 150 lbs Functional Status No Functional Status data History of Present Illness Symptom Name Status Result Effective Date Notes well woman exam (18-39 years) Control regular use 06/11/2018 None well woman exam (18-39 years) Menstrual History amenorrhea 06/11/2018 None well woman exam (18-39 years) Obstetrical History 1 total pregnancies 06/11/2018 None well woman exam (18-39 years) Lifestyle regular seatbelt use 06/11/2018 None well woman exam (18-39 years) Lifestyle normal sleep patterns 06/11/2018 None well woman exam (18-39 years) Lifestyle normal amount of stress 06/11/2018 None well woman exam (18-39 years) Nutrition and Exercise normal weight 06/11/2018 None well woman exam (18-39 years) Nutrition and Exercise regular diet 06/11/2018 None well woman exam (18-39 years) Nutrition and Exercise no exercise 06/11/2018 None well woman exam (18-39 years) Sexual Activity is monogamous 06/11/2018 None well woman exam (18-39 years) Pap Smear normal results 06/11/2018 None well woman exam (18-39 years) Obstetrical History 1 total pregnancies 07/14/2017 None well woman exam (18-39 years) Lifestyle regular seatbelt use 07/14/2017 None well woman exam (18-39 years) Lifestyle normal sleep patterns 07/14/2017 None well woman exam (18-39 years) Nutrition and Exercise normal weight 07/14/2017 None well woman exam (18-39 years) Nutrition and Exercise regular diet 07/14/2017 None well woman exam (18-39 years) Control regular use 07/14/2017 None well woman exam (18-39 years) Menstrual History amenorrhea 07/14/2017 None well woman exam (18-39 years) Lifestyle normal amount of stress 07/14/2017 None well woman exam (18-39 years) Nutrition and Exercise no exercise 07/14/2017 None well woman exam (18-39 years) Menstrual History regular menses 07/24/2016 None well woman exam (18-39 years) Menstrual History normal flow 07/24/2016 None well woman exam (18-39 years) Lifestyle no history of physical abuse 07/24/2016 None well woman exam (18-39 years) Lifestyle regular seatbelt use 07/24/2016 None well woman exam (18-39 years) Lifestyle satisfactory work experience 07/24/2016 None well woman exam (18-39 years) Lifestyle normal sleep patterns 07/24/2016 None well woman exam (18-39 years) Nutrition and Exercise normal weight 07/24/2016 None well woman exam (18-39 years) Nutrition and Exercise balanced nutrition 07/24/2016 None well woman exam (18-39 years) Nutrition and Exercise regular diet 07/24/2016 None well woman exam (18-39 years) Nutrition and Exercise moderate exercise 07/24/2016 None well woman exam (18-39 years) Health Guidance tobacco, drugs and alcohol avoidance 07/24/2016 None well woman exam (18-39 years) Health Guidance regular exercise 07/24/2016 None well woman exam (18-39 years) Health Guidance safety belt use 07/24/2016 None well woman exam (18-39 years) Health Guidance limiting UV/sun exposure 07/24/2016 None well woman exam (18-39 years) Obstetrical History 1 total pregnancies 07/24/2016 None well woman exam (18-39 years) Health Guidance self-breast exam 07/24/2016 None well woman exam (18-39 years) Sexual Activity experiences sexual satisfaction 07/24/2016 None well woman exam (18-39 years) Control none 07/24/2016 None onychodystrophy Location on all toenails 03/31/2016 None onychodystrophy Quality separation 03/31/2016 None onychodystrophy Quality worsening 03/31/2016 None onychodystrophy Onset and Resolution ongoing 03/31/2016 None onychodystrophy Pertinent Findings Denies thickening of nail 03/31/2016 None onychodystrophy Pertinent Findings discoloration 03/31/2016 None onychodystrophy Onset of Symptom 1 years ago 03/31/2016 None onychodystrophy Limitation on Activities does not limit activities 03/31/2016 None onychodystrophy Frequency of Episodes increasing 03/31/2016 None onychodystrophy Triggers no known associated factors 03/31/2016 None well woman exam (18-39 years) Lifestyle regular seatbelt use 07/05/2015 None well woman exam (18-39 years) Lifestyle no history of physical abuse 07/05/2015 None well woman exam (18-39 years) Lifestyle satisfactory work experience 07/05/2015 None well woman exam (18-39 years) Lifestyle normal sleep patterns 07/05/2015 None well woman exam (18-39 years) Nutrition and Exercise normal weight 07/05/2015 None well woman exam (18-39 years) Nutrition and Exercise balanced nutrition 07/05/2015 None well woman exam (18-39 years) Nutrition and Exercise regular diet 07/05/2015 None well woman exam (18-39 years) Nutrition and Exercise moderate exercise 07/05/2015 None well woman exam (18-39 years) Health Guidance tobacco, drugs and alcohol avoidance 07/05/2015 None well woman exam (18-39 years) Health Guidance safety belt use 07/05/2015 None well woman exam (18-39 years) Health Guidance regular exercise 07/05/2015 None well woman exam (18-39 years) Health Guidance limiting UV/sun exposure 07/05/2015 None well woman exam (18-39 years) Menstrual History normal flow 07/05/2015 None well woman exam (18-39 years) Menstrual History regular menses 07/05/2015 None _ Pertinent Findings Denies fever 09/28/2014 None well woman exam (18-39 years) Control regular use 09/28/2014 None well woman exam (18-39 years) Pap Smear normal results 09/28/2014 None well woman exam (18-39 years) Menstrual History light flow 09/28/2014 None well woman exam (18-39 years) Obstetrical History 0 total pregnancies 09/28/2014 None well woman exam (18-39 years) Nutrition and Exercise normal weight 09/28/2014 None well woman exam (18-39 years) Health Guidance self-breast exam 09/28/2014 None well woman exam (18-39 years) Lifestyle normal sleep patterns 09/28/2014 None Advance Directives No Advance Directive data Encounters Encounter Performer Location Codes Date ([id number]) PREV VISIT EST AGE 18-39 Diagnosis: Encounter for general adult medical examination without abnormal findings[ICD10: Z00.00] [facility] CPT-4: 77994 06/11/2018 ([id number]) PREV VISIT EST AGE 18-39 Diagnosis: Encounter for general adult medical examination without abnormal findings[ICD10: Z00.00] [facility] CPT-4: 75948 07/14/2017 ([id number]) PREV VISIT EST AGE 18-39 Diagnosis: Encounter for general adult medical examination without abnormal findings[ICD10: Z00.00] [facility] CPT-4: 29161 07/24/2016 [id number] EST. 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] [facility] CPT-4: 38577 03/31/2016 ([id number]) PREV VISIT EST AGE 18-39 Diagnosis: Encounter for general adult medical examination without abnormal findings[ICD10: Z00.00] [facility] CPT-4: 78505 07/05/2015 ([id number]) PREV VISIT NEW AGE 18-39 Diagnosis: Well adult[ICD9: V70.0] [facility] CPT-4: 08090 09/28/2014 Plan of Care Planned Activity Notes Codes Status Date Patient Education: Patient Medication Summary Completed 06/11/2018 [facility] [phone] [facility] [phone] [place] (15 min) Moderate 07/14/2017 Patient Education: Patient Medication Summary Completed 07/14/2017 Patient Education: Obesity Completed 07/14/2017 Appointment: [facility] [phone] [facility] [place] [place] (30 min) Complex 09/30/2016 Patient Education: Patient Medication Summary Completed 07/24/2016 Patient Education: Obesity Completed 07/24/2016 Appointment: [facility] [phone] [facility] [phone] [place] (30 min) Complex 03/31/2016 Patient Education: Patient Medication Summary Completed 03/31/2016 Patient Education: Patient Medication Summary Completed 10/29/2015 Patient Education: Patient Medication Summary Completed 07/05/2015 Appointment: New Patient 09/28/2014 Patient Education: Patient Medication Summary Completed 09/28/2014 Care Plan: COMPLETE CBC AUTOMATED LOINC : 56803-7 Ordered 09/28/2014 Instructions No Instructions
--- OUTSIDE RECORDS SUMMARY | 2018-07-26 11:54 | XMS REPORT | CCD ---
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 Name Role Phone PP Unavailable CCM Unavailable Summary Purpose Interface Exchange Insurance Providers Payer name Policy type / Coverage type Covered libertarian ID Effective Begin Date Effective End Date [id number] Unknown Unknown Family history Sister Diagnosis Age At Onset Ovarian cancer Unknown Grandfather Diagnosis Age At Onset Diabetes Unknown Father Diagnosis Age At Onset No Known Diseases N/A Mother Diagnosis Age At Onset Hypertension Unknown Social History Social History Element Codes Description Effective Dates Number of children Unknown 1 07/14/2017 Marital status Unknown 03/31/[address]: 525015678 Never smoker 09/28/[address]: 645353 Currently drinks alcohol 09/28/2014 Allergies, Adverse Reactions, [...] Date Status Fill Instructions DHA oral RxNorm: 784462 oral No Start Date Active fenugreek seed extract oral RxNorm: 526197 oral No Start Date Active Microgestin 120 (21) 1 mg-20 mcg tablet RxNorm: 4015352 oral No Start Date 03/30/2016 Inactive biotin [...] 89.5 fl 10/31/2015 Cbc With Differential Ord2 Meagher% 6.3 % 10/31/2015 Cbc With Differential Ord2 [...] 2.49 K/ul 10/31/2015 Cbc With Differential Ord2 Meagher ABS# 0.5 K/ul 10/31/2015 Cbc With Differential Ord2 Eos ABS# 0.1 K/ul 10/31/2015 Cbc With Differential Ord2 Baso ABS# 0.0 K/ul 10/31/2015 Cbc With Differential Ord2 New Analyzer Notice Please note new ref ranges starting 08-29-2015 due to implemntation of new five part differential hematolgy analyzer. 10/31/2015 Comp Metabolic Zbs381 NA 137 mEq/L 08/29/2015 Comp Metabolic Etj004 K 3.9 mEq/L 08/29/2015 Comp Metabolic Npb415 CL 105 mEq/L 08/29/2015 Comp Metabolic Nlv626 CO2 26.0 mEq/L 08/29/2015 Comp Metabolic Mpn917 ANION GAP 10 08/29/2015 Comp Metabolic Rth928 GLUCOSE 81 mg/dL 08/29/2015 Comp Metabolic Bxb574 Creat 0.8 mg/dL 08/29/2015 Comp Metabolic Bki188 eGFR 91 ml/min/1.73m2 08/29/2015 Comp Metabolic Lgh849 BUN 15 mg/dL 08/29/2015 Comp Metabolic App979 B/C Ratio 18.5 Ratio 08/29/2015 Comp Metabolic Opz934 CALCIUM 9.2 mg/dL 08/29/2015 Comp Metabolic Ggx802 ALK PHOS 39 U/L 08/29/2015 Comp Metabolic Qmk738 AST(SGOT) 15 U/L 08/29/2015 Comp Metabolic Len674 ALT(SGPT) 13 U/L 08/29/2015 Comp Metabolic Xuf403 BILI T 0.8 mg/dL 08/29/2015 Comp Metabolic Cge373 ALBUMIN 4.4 g/dL 08/29/2015 Comp Metabolic Xjj368 TPRO 6.9 g/dL 08/29/2015 Comp Metabolic Ljl265 GLOB 2.5 g/dL 08/29/2015 Comp Metabolic Zgf138 A/G Ratio 1.7 Ratio 08/29/2015 Comp Metabolic Rlp235 Osmo 274 mOsmo 08/29/2015 Manual Differential Ord52 D-Neutr 34 % 08/29/2015 Manual Differential Ord52 D-Bands 2 % 08/29/2015 Manual Differential Ord52 D-Lymph 61 % 08/29/2015 Manual Differential Ord52 D-Meagher 3 % 08/29/2015 Manual Differential Ord52 D-1 [...] Code : 8480-6 BMI: 24.7 Code : 14629-1 Heart Rate 1 : 85 bpm Height: 5'4" SpO2: 98% Weight: 144 lbs 07/14/2017 Blood Pressure 1: 102/72 Code : 8480-6 BMI: 25.4 Code : 89190-0 Heart Rate 1 : 96 bpm Height: 5'4" SpO2: 98% Weight: 148 lbs 07/24/2016 Blood Pressure 1: 112/56 Code : 8480-6 BMI: 26.8 Code : 50381-7 Heart Rate 1 : 92 bpm Height: 5'4" SpO2: 96% Weight: 156 lbs 03/31/2016 Blood Pressure 1: 110/60 Code : 8480-6 BMI: 25.1 Code : 01455-2 Heart Rate 1 : 110 bpm Height: 5'4" SpO2: 97% Weight: 146 lbs 07/05/2015 Blood Pressure 1: 118/62 Code : 8480-6 BMI: 25.4 Code : 49559-6 Heart Rate 1 : 81 bpm Height: 5'4" SpO2: 98% Weight: 148 lbs 09/28/2014 Blood Pressure 1: 100/62 Code : 8480-6 BMI: 25.7 Code : 74309-8 Heart Rate 1 : 77 bpm Height: [...] data Encounters Encounter Performer Location Codes Date (27227) PREV VISIT EST AGE 18-39 Diagnosis: Encounter for general adult medical examination without abnormal findings[ICD10: Z00.00] [facility] CPT-4: 85266 06/11/2018 ([id number]) PREV VISIT EST AGE 18-39 Diagnosis: Encounter for general adult medical examination without abnormal findings[ICD10: Z00.00] [facility] CPT-4: 78032 07/14/2017 ([id number]) PREV VISIT EST AGE 18-39 Diagnosis: Encounter for general adult medical examination without abnormal findings[ICD10: Z00.00] [facility] CPT-4: 32782 07/24/2016 34632 EST. 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] [facility] CPT-4: 58089 03/31/2016 ([id number]) PREV VISIT EST AGE 18-39 Diagnosis: Encounter for general adult medical examination without abnormal findings[ICD10: Z00.00] [facility] CPT-4: 88313 07/05/2015 (12803) PREV VISIT NEW AGE 18-39 Diagnosis: Well adult[ICD9: V70.0] [facility] CPT-4: 43081 09/28/2014 Plan of Care Planned Activity Notes Codes Status Date Patient Education: Patient Medication Summary Completed 06/11/2018 App[facility]ment: [facility] [phone] [phone] [place] ([place] Moderate 07/14/2017 Patient Education: Patient Medication Summary Completed 07/14/2017 Patient Education: Obesity Completed 07/14/2017 Appointment: [facility] [phone] [phone] [place] ([place] Complex 09/30/2016 Patient Education: Patient Medication Summary Completed 07/24/2016 Patient Education: Obesity Completed 07/24/2016 Appointment: [facility] [phone] [phone] [place] (30 min) Complex 03/31/2016 Patient Education: Patient Medication Summary Completed 03/31/2016 Patient Education: Patient Medication Summary Completed 10/29/2015 Patient Education: Patient Medication Summary Completed 07/05/2015 Appointment: New Patient 09/28/2014 Patient Education: Patient Medication Summary Completed 09/28/2014 Care Plan: COMPLETE CBC AUTOMATED LOINC : 97778-8 Ordered 09/28/2014 Instructions No Instructions
[2018-07-26 11:58] VITALS: BP 96/59
[2018-07-26] MEDS ORDERED: LACTATED RINGERS 1,000 ML IV PRN (12:02)
[2018-07-26] MEDS ORDERED: MIDAZOLAM 2 MG/2 ML (VERSED) VIAL ONE (12:03)
[2018-07-26] MEDS ORDERED: fentaNYL INJECTION 100 MCG/2 ML AMP ONE (12:04)
--- NOTE | 2018-07-26 12:14 | Progress Note-Pre Operative ---
Pre-Operative Progress Note H&P Reviewed The H&P was reviewed, patient examined and no changes noted. Date Seen by Provider: Jul 26, 2018 Time Seen by Provider: 12:14 Date H&P Reviewed: Jul 26, 2018 Time H&P Reviewed: 12:14 Pre-Operative Diagnosis: Blighted ovum at 9 weeks gestation KHURRAM BRADFORD MD Jul 26, 2018 12:14
[2018-07-26] MEDS ORDERED: oxyCODONE/APAP 5/325MG (PERCOCET 5) TABLET PO PRN (12:15)
[2018-07-26] MEDS ORDERED: PROMETHAZINE INJ 25 MG/ML (PHENERGAN) AMP IM ONE (12:15)
[2018-07-26] MEDS ORDERED: D5 LR IV SOLUTION 1,000 ML IV SCH (12:15)
[2018-07-26] MEDS ORDERED: KETOROLAC 30 MG/ML VIAL IVP ONE (12:15)
[2018-07-26] MEDS ORDERED: MEPERIDINE (DEMEROL) INJ 100 MG/ML IM ONE (12:15)
[2018-07-26] MEDS ORDERED: ceFAZolin INJECTION 1,000 MG in NS (IVPB) 50 ML IV ONE (12:15)
[2018-07-26] MEDS ORDERED: ONDANSETRON 4 MG/2 ML (SDV) Z0FRAN IVP PRN ×2 (12:15→13:15)
--- NOTE | 2018-07-26 12:15 | Progress Note-Post Operative ---
Post-Operative Progess Note Surgeon (s)/President Ceo & Founder (s) Surgeon KHURRAM BRADFORD MD President Ceo & Founder: None Pre-Operative Diagnosis Blighted ovum at 9 weeks gestation Post-Operative Diagnosis Same with pathology pending Procedure & Operative Findings Date of Procedure 07/26/18 Procedure Performed/Findings D&C for blighted ovum Anesthesia Type GETA Estimated Blood Loss Estimated blood loss (mL): 100CC Specimens/Packing Specimens Removed Uterine contents/POC Packing: KHURRAM Hooker MD Jul 26, 2018 12:15
[2018-07-26] MEDS ORDERED: IBUP-1780 PO (12:18)
[2018-07-26] MEDS ORDERED: OXYC1TAB87 PO (12:18)
--- NOTE | 2018-07-26 12:20 | Discharge Instructions ---
Discharge Instructions Discharge Medications New, Converted or Re-Newed RX: RX on Chart Patient Instructions Patient Instructions: As directed Return to The Hospital For: DIRECTED Activity & Diet Discharge Diet: No Restrictions Activity as Tolerated: No Orders-Post D/C & Referrals Follow Up Appt: Call to make follow up appt. for patient in 2 weeks. Activity: Rest for 24 hours, than as tolerated. Please call in RX to patient pharmacy. Diet: As tolerated-Clear Liquids only if nauseated. may shower or tub bathe as desired. No driving for 24 hours, no alcoholic beverages for 24 hours, and nothing per vagina (no tampons, douching, or intercourse) for 2 weeks. Patient to return to the clinic as soon as possible for: Temperature greater than 101F, Severe Pain, Foul discharge from incision or vagina, Excessive Bleeding (more than a period). KHURRAM BRADFORD MD Jul 26, 2018 12:20
[2018-07-26 12:27] LABS: BASOPHILS % (AUTO) 0 % (0-10); EOSINOPHILS % (AUTO) 1 % (0-10); HEMATOCRIT 37 % (35-52); HEMOGLOBIN 12.9 G/DL (11.5-16.0); LYMPHOCYTES # (AUTO) 2.1 X 10^3 (1.0-4.0); LYMPHOCYTES % (AUTO) 30 % (12-44); MEAN CORPUSCULAR HEMOGLOBIN 30 PG (25-34); MEAN CORPUSCULAR HGB CONC 35 G/DL (32-36); MEAN CORPUSCULAR VOLUME 86 FL (80-99); MEAN PLATELET VOLUME 9.3 FL (7.4-10.4); MONOCYTES # (AUTO) 0.5 X 10^3 (0.0-1.0); MONOCYTES % (AUTO) 8 % (0-12); NEUTROPHILS # (AUTO) 4.4 X 10^3 (1.8-7.8); NEUTROPHILS % (AUTO) 62 % (42-75); PLATELET COUNT 231 10^3/uL (130-400); RED BLOOD COUNT 4.28 10^6/uL (4.35-5.85); RED CELL DISTRIBUTION WIDTH 12.7 % (10.0-14.5)
[2018-07-26] MEDS ORDERED: proPOfol 200 MG/20 ML (DIPRIVAN) VIAL IV ONE (12:48)
[2018-07-26] MEDS ORDERED: SEVOFLURANE (ULTANE) 15 ML INHAL SOLN ONE ×2 (12:48)
[2018-07-26] MEDS ORDERED: ONDANSETRON 4 MG/2 ML (SDV) Z0FRAN ONE (12:48)
[2018-07-26] MEDS ORDERED: LIDOCAINE PF 2% 5 ML (XYLOCAINE) VIAL ONE (12:48)
[2018-07-26] MEDS ORDERED: morphine INJ 10 MG/ML 1ML (SYR OR VIAL) IVP ONE (13:15)
[2018-07-26] MEDS ORDERED: MEPERIDINE (DEMEROL) INJ 50 MG/ML IVP ONE (13:15)
--- NOTE | 2018-07-26 13:31 | Anesthesia-General Post-Op ---
General Patient Condition Mental Status/LOC: Same as Preop Cardiovascular: Satisfactory Nausea/Vomiting: Absent Respiratory: Satisfactory Pain: Controlled Complications: Absent Post Op Complications Complications None Follow Up Care/Instructions Patient Instructions None needed. Anesthesia/Patient Condition Patient Condition Patient is doing well, no complaints, stable vital signs, no apparent adverse anesthesia problems. No complications reported per nursing. TOYIN SANTORO CRNA Jul 26, 2018 13:31
[2018-07-26 13:50] VITALS: BP 103/58
[2018-07-26 14:20] VITALS: BP 98/56
[2018-07-26 14:50] VITALS: BP 99/58
--- NOTE | 2018-07-26 22:17 | OPERATIVE REPORT ---
DATE OF SERVICE: 07/26/2018 PREOPERATIVE DIAGNOSIS: Missed /blighted ovum. POSTOPERATIVE DIAGNOSIS: Missed /blighted ovum. OPERATIVE PROCEDURE: D and C. OPERATIVE DESCRIPTION: With the patient in supine position under satisfactory general anesthesia, she was prepped and draped in the usual fashion for vaginal surgery after being repositioned in dorsal lithotomy position in the [facility]. Weighted speculum was placed in the posterior fornix of vagina after the bladder was drained with a straight catheter. The cervix was grasped anteriorly with single tooth tenaculum. The uterus was sounded to 13 cm with uterine sound. The cervix was then serially dilated with Salo dilators to a #9 Hegar dilator. A #9 curved suction curette was then introduced and uterine cavity curettaged in all 4 quadrants with removal of a large amount of trophoblastic appearing tissue, amniotic fluid, blood clot and debris. The endometrial cavity was then sharply curettaged in all 4 quadrants to good uterine cry. Curved sucking curette was reintroduced. All blood clot and debris evacuated from the uterine cavity. The tenaculum was removed. There was some bleeding from one of the puncture sites. This was touched with silver nitrate to effect hemostasis. Hemostasis assured and sponge and needle counts correct and estimated blood loss was around 100 mL. The procedure was complete. The patient was uneventfully awakened from her general anesthesia and transferred to the recovery room in stable condition with plans for discharge home PAR. Job ID: [id number] DocumentID: [id number] Dictated Date: 07/26/2018 12:52:46 Escrow Processor Date: 07/26/2018 22:16:21 Dictated By: KHURRAM BRADFORD MD
== END 2018-07-26 14:50 | disposition home or self-care (01) ==
LOC: SDC 11:49
PROVIDERS: ATTEND Obstetrics & Gynecology
DX: O02.1 Missed abortion (principal); Z11.2 Encounter for screening for other bacterial diseases
CPT/HCPCS: 36415; 85025; 87081

== ENCOUNTER 2019-07-11 07:00 | Inpatient (IN) | payer BC ==
[~2019-07-11] VITALS: Ht 162.6 cm; Wt 82.3 kg
[~2019-07-11 07:00] MED LIST changes: +OXYC1TAB87 PO
[2019-07-20] VITALS (44 sets, daily range): BP systolic 92–162; BP diastolic 49–72
--- NOTE | 2019-07-20 07:00 | NUR ---
GANGA HAIRSTON presented to unit via amublation accompanied by , for scheduled IOL. Pt. weighed, gowned, voided, and to bed. EFHM and TOCO applied, VS taken. Pt. oriented to bed controls, call light, TV, heat, and A/C controls.
[2019-07-20] MEDS ORDERED: SUFENTA 0.6MCG/ML BUPIVA 0.125 100 ML ONE (07:23)
[2019-07-20] MEDS ORDERED: D5 LR IV SOLUTION 1,000 ML IV ONE (07:23)
[2019-07-20] MEDS ORDERED: OXYTOCIN/NORMAL SALINE 500 ML IV ONE (07:23)
[2019-07-20] MEDS ORDERED: LACTATED RINGERS 1,000 ML IV ONE (07:23)
[2019-07-20] MEDS: D5 LR IV SOLUTION 1,000 ML IV SCH ×3 (07:35→21:02)
--- NOTE | 2019-07-20 07:35 | NUR ---
#20g IV to Rt.hand x1 attempt by this RN. site patent, secured with opsite. admission labs collected from site prior to IVF's infusing. see eMar for further.
[2019-07-20] MEDS ORDERED: OXYTOCIN/NORMAL SALINE 500 ML IV SCH ×2 (07:42→16:44)
[2019-07-20 07:52] LABS: BASOPHILS % (AUTO) 0 % (0-10); EOSINOPHILS # (AUTO) 0.1 10^3/uL (0.0-0.3); EOSINOPHILS % (AUTO) 1 % (0-10); HEMATOCRIT 34 % (35-52); HEMOGLOBIN 11.4 G/DL (11.5-16.0); LYMPHOCYTES # (AUTO) 1.9 X 10^3 (1.0-4.0); LYMPHOCYTES % (AUTO) 22 % (12-44); MEAN CORPUSCULAR HEMOGLOBIN 32 PG (25-34); MEAN CORPUSCULAR HGB CONC 34 G/DL (32-36); MEAN CORPUSCULAR VOLUME 93 FL (80-99); MEAN PLATELET VOLUME 9.7 FL (7.4-10.4); MONOCYTES # (AUTO) 0.9 X 10^3 (0.0-1.0); MONOCYTES % (AUTO) 10 % (0-12); NEUTROPHILS # (AUTO) 5.9 X 10^3 (1.8-7.8); NEUTROPHILS % (AUTO) 67 % (42-75); PLATELET COUNT 212 10^3/uL (130-400); RED CELL DISTRIBUTION WIDTH 12.9 % (10.0-14.5); WHITE BLOOD COUNT 8.8 10^3/uL (4.3-11.0)
[2019-07-20] MEDS ORDERED: IBUP-1780 PO (07:52)
[2019-07-20] MEDS ORDERED: OXYC1TAB87 PO (07:52)
[2019-07-20] MEDS ORDERED: DOCU-143 PO (07:52)
--- NOTE | 2019-07-20 07:53 | Discharge Instructions ---
Discharge Instructions Discharge Medications New, Converted or Re-Newed RX: RX on Chart Patient Instructions Return to The Hospital For: As directed Activity & Diet Discharge Diet: No Restrictions Activity as Tolerated: No Orders-Post D/C & Referrals Follow Up Appt: Call to make follow up appt. for patient in 4 weeks. Activity Per routine post vaginal delivery instructions. Please call in RX to patient pharmacy. Diet as tolerated Patient may shower or tub bathe as desired. KHURRAM BRADFORD MD Jul 20, 2019 07:53 POS
--- NOTE | 2019-07-20 07:55 | History & Physical ---
History and Physical Date Seen by Provider: Jul 20, 2019 Time Seen by Provider: 07:53 This patient is a 28-year-old A2 white female with an EDC of July 24, 2019 putting her now at 39+ weeks' gestation. She is admitted for elective induction of labor. Her has been complicated by oligohydramnios. She denies rupture membranes or bleeding. Her GBS culture was negative. Allergies are none Medications are vitamins Medical social and surgical histories are per the antepartum record HEENT exam is normal Neck is supple no lymphadenopathy no thyromegaly Abdomen is gravid soft nontender nondistended Extreme show no clubbing cyanosis. There is no Homans sign. Pelvic exam was performed in clinic was for centimeters dilated 90 percent effaced and 0+1 station vertex presentation with a soft and anterior cervix. This equates to a Reveles score of 12 Assessment and plan term at 39+ weeks' gestation with a favorable cervix admitted for induction of labor anticipation is for vaginal delivery. 39+ weeks gestation admitted for elective induction of labor with a history of oligohydramnios Allergies and Home Medications Allergies Coded Allergies: No Known Drug Allergies (Unverified , 07/23/18) Home Medications Docusate Sodium 100 Mg Capsule, 100 MG PO BID Prescribed by: KHURRAM CABRERA on 07/20/19 075 Ibuprofen 800 Mg Tablet, 800 MG PO Q6H PRN for PAIN Prescribed by: KHURRAM CABRERA on 07/20/19 075 Oxycodone HCl/Acetaminophen 1 Each Tablet, 1 EACH PO Q4H PRN for PAIN-MODERATE Prescribed by: KHURRAM CABRERA on 07/20/19 075 Vit/Iron Fumarate/FA 1 Each Tablet, 1 EACH PO DAILY, (Reported) Patient Home Medication List Home Medication List Reviewed: Yes KHURRAM BRADFORD MD Jul 20, 2019 07:55 POS
--- NOTE | 2019-07-20 08:10 | NUR ---
anesthesia notified of pt's request for epidural placement.
[2019-07-20] MEDS ORDERED: PSEUDOEPHEDRINE HCL 30 MG (SUDAFED) TAB PO PRN (08:15)
[2019-07-20] MEDS ORDERED: LIDOCAINE PF 2% 5 ML (XYLOCAINE) VIAL ONE (08:23)
[2019-07-20] MEDS ORDERED: fentaNYL INJECTION 100 MCG/2 ML AMP ONE (08:23)
[2019-07-20] MEDS ORDERED: BUPIVACAINE 0.25% 30 ML (SENSORCAINE) VIAL ONE (08:23)
[2019-07-20] MEDS ORDERED: LACTATED RINGERS 1,000 ML IV SCH (08:38)
[2019-07-20] MEDS ORDERED: ONDANSETRON 4 MG/2 ML (SDV) Z0FRAN IV PRN (08:45)
[2019-07-20] MEDS ORDERED: NALOXONE 0.4 MG/ML 1 ML (NARCAN) VIAL IV PRN (08:45)
[2019-07-20] MEDS ORDERED: diphenhydrAMINE 50 MG/ML INJ (BENADRYL) IV PRN (08:45)
[2019-07-20] MEDS: EPIDURAL (SUFENTA 0.6MCG/ML BUPIVA 0.125%) 100 ML BAG EPI PRN (09:10)
--- NOTE | 2019-07-20 14:19 | NUR ---
called to check on pt's status. update given on SVE.
[2019-07-20] MEDS ORDERED: LIDOCAINE/EPI 2% 1:200,00 (XYLOCAINE) 10 ML VIAL ONE (15:56)
[2019-07-20] MEDS: BENZOCAINE/MENTHOL (DERMOPLAST) 56 ML CAN TP PRN ×2 (16:38→21:20)
[2019-07-20] MEDS ORDERED: WITCH HAZEL(TUCKS) 40 EA JAR ONE (16:41)
[2019-07-20] MEDS ORDERED: BENZOCAINE/MENTHOL (DERMOPLAST) 56 ML CAN TP ONE (16:41)
[2019-07-20] MEDS ORDERED: ONDANSETRON 4 MG/2 ML (SDV) Z0FRAN IVP PRN (16:45)
[2019-07-20] MEDS ORDERED: TETANUS,DIPTH,PERTUSS P/F (BOOSTRIX) 0.5 ML VIAL IM ONE (16:45)
[2019-07-20] MEDS ORDERED: oxyCODONE/APAP 5/325MG (PERCOCET 5) TABLET PO PRN (16:45)
[2019-07-20] MEDS: KETOROLAC 30 MG/ML VIAL IVP SCH ×2 (17:50→23:40)
--- NOTE | 2019-07-20 18:45 | NUR ---
FFu/0. lt-moderate rubra noted. Dermaplast to perineum. ice pack applied. per-care offered. pt transferred to room 309 via w/c with this RN @ side. pt stable with no sx's of distress noted. call light within reach.
[2019-07-20] MEDS: DOCUSATE SODIUM 100 MG (COLACE) CAP PO SCH (20:25)
[2019-07-21] VITALS: BP 96/50
--- NOTE | 2019-07-21 03:07 | OPERATIVE REPORT ---
DATE OF SERVICE: 07/20/2019 DELIVERY NOTE The patient delivered by term spontaneous vaginal delivery at 39+ weeks gestation, a viable female infant with Apgars of 9 and 9 at 1 and 5 minutes respectively, weight of 8 pounds 1 ounce, time of 1625 and a cord blood pH is pending. The infant delivered over a first-degree posterior fourchette laceration under epidural analgesia augmented with local in the perineal body. The infant was bulb suctioned on delivery of the head and again on completion of delivery. Umbilical cord was doubly clamped at approximately 45 seconds once it had become relatively pulseless, the father cut the cord, the baby was passed to mom's abdomen. Cord bloods were obtained. The placenta delivered very promptly spontaneously Kevin. It was normal with a 3-vessel cord. The cervix, vagina, rectum, and perineum were examined and found to be intact except for several superficial abrasions in the posterior vaginal floor that were mildly oozing, but did not require suture repair. The posterior fourchette laceration was first-degree and that was repaired with a running suture in a locking fashion of 3-0 Vicryl Rapide to good reapproximation and good hemostasis. The sponge and needle counts were correct on completion of delivery and the repair. Estimated blood loss was around 200 mL. The patient tolerated the delivery and the repair well and remained in the LDR. The baby remained with the mom. Job ID: [id number] DocumentID: [id number] Dictated Date: 07/20/2019 16:43:10 [employer] Date: 07/21/2019 03:07:00 Dictated By: KHURRAM BRADFORD MD
[2019-07-21 04:00] VITALS: BP 106/56
[2019-07-21] MEDS: EPIDURAL (SUFENTA 0.6MCG/ML BUPIVA 0.125%) 100 ML BAG EPI PRN (05:23)
[2019-07-21] MEDS: KETOROLAC 30 MG/ML VIAL IVP SCH (06:24)
--- NOTE | 2019-07-21 07:33 | Progress Note ---
Standard Progress Note Progress Notes/Assess & Plan Date Seen by a Provider: Jul 21, 2019 Time Seen by a Provider: 07:32 Progress/Assessment & Plan This patient is without complaint. She is ablating, voiding, tolerating oral intake well has good pain control. Vital Signs 07/21/19 04:00 Temp 36.5 Pulse 86 Resp 20 B/P (MAP) 106/56 (73) Pulse Ox 96 O2 Delivery Room Air Vital signs are stable. Patient is afebrile. Fundus is firm below the umbilicus and nontender. Extremities show no clubbing or cyanosis. There is no Homans sign. Assessment and plan day number 1 status post term spontaneous vaginal delivery at 39 weeks gestation doing well. Plan for routine convalescence care with discharge home today or tomorrow as patient prefers Final Diagnosis 39 week spontaneous vaginal delivery KHURRAM BRADFORD MD Jul 21, 2019 07:33 POS
[2019-07-21] MEDS ORDERED: OXYC1TAB87 PO (07:34)
[2019-07-21 07:55] VITALS: BP 110/69
[2019-07-21] MEDS: DOCUSATE SODIUM 100 MG (COLACE) CAP PO SCH (07:58)
[2019-07-21] MEDS ORDERED: IBUPROFEN 800 MG (MOTRIN) TAB PO SCH (12:00)
[2019-07-21] MEDS ORDERED: IBUPROFEN 800 MG (MOTRIN) TAB PO ONE (12:47)
[2019-07-21 12:52] VITALS: BP 110/64
[2019-07-21 16:46] VITALS: BP 110/64
--- NOTE | 2019-07-21 17:18 | Anesthesia-Regional Post-Op ---
Regional Patient Condition Mental Status: Alert, Oriented x3 Circulation: Same as Pre-Op Headache: Absent Sensation: Full Recovery Motor Block: Absent Post Op Complications Complications None Follow Up Care/Instructions Patient Instructions None needed. Anesthesia/Patient Condition Patient is doing well, no complaints, stable vital signs, no apparent adverse anesthesia problems. ARACELI ROBERTS DO Jul 21, 2019 17:18 POS
--- NOTE | 2019-07-21 18:34 | NUR ---
GANGA HAIRSTON demonstrates understanding of discharge instructions and accurately returns instructions upon questioning. Copy of Post-Discharge Instructions and Medication Discharge Instructions given to patient. GANGA HAIRSTON is able to manage continuing needs after discharge. Patients belongings returned to pt. Skin dry and intact; no breakdown noted. Patient discharged from 3309-1 on 07-21-19 at 1834 . GANGA HAIRSTON left floor ambulatory, accompanied by and women services staff..
[2019-07-25] MEDS ORDERED: IBUPROFEN 800 MG (MOTRIN) TAB PO SCH (18:00)
== END 2019-07-21 18:34 | disposition home or self-care (01) | DRG 807 ==
LOC: LDRP 07-20 07:09
PROVIDERS: ADMIT Obstetrics & Gynecology; ATTEND Obstetrics & Gynecology
PROC: 10E0XZZ Delivery of Products of Conception, External Approach (ICD-10-PCS; principal; 2019-07-20)
PROC: 0HQ9XZZ Repair Perineum Skin, External Approach (ICD-10-PCS; 2019-07-20)
PROC: 3E033VJ Introduction of Other Hormone into Peripheral Vein, Percutaneous Approach (ICD-10-PCS; 2019-07-20)
DX: O41.03X0 Oligohydramnios, third trimester, not applicable or unspecified (principal); O70.0 First degree perineal laceration during delivery; Z37.0 Single live birth; Z3A.39 39 weeks gestation of pregnancy
CPT/HCPCS: 36415; 85025; 88307

== ENCOUNTER 2019-07-15 08:50 | Outpatient (CLI) | payer BC ==
[2019-07-15 09:17] VITALS: BP 106/58
== END 2019-07-15 09:25 | disposition home or self-care (01) ==
LOC: WSo 08:50 → LDRP 08:50 → WSo 09:25
PROVIDERS: ATTEND Obstetrics & Gynecology
DX: Z34.83 Encounter for supervision of other normal pregnancy, third trimester (principal); Z3A.38 38 weeks gestation of pregnancy
CPT/HCPCS: 59025